=== PATIENT | female | born 1970 | race African-American/Black ===

== ENCOUNTER 2018-04-30 23:05 | Emergency (ER) | payer BC ==
[2018-04-30] MEDS: IV NORMAL SALINE 1000ML BAG 1,000 ML IV (23:45)
[2018-04-30 23:54] LABS: ADD MAN DIFF? NO
[2018-04-30] MEDS ORDERED: fentaNYL PF VIAL 100 MCG/2 ML VIAL (23:55)
[2018-04-30 23:56] LABS: BASO # 0.1 x10^3/uL (0.0-0.2); BASO % 1 % (0-3); EOS # 0.5 x10^3/uL (0.0-0.7); EOS % 4 % (0-3); HEMATOCRIT 36.5 % (36.0-47.0); HEMOGLOBIN 12.1 g/dL (12.0-15.5); LYMPH % 39 % (24-48); MEAN CORPUSCULAR HEMOGLOBIN 27 pg (25-35); MEAN CORPUSCULAR HGB CONC 33 g/dL (31-37); MEAN CORPUSCULAR VOLUME 82 fL (79-100); MONO # 0.9 x10^3/uL (0.0-1.1); MONO % 7 % (0-9); NEUT # 6.3 x10^3uL (1.8-7.7); NEUT % 50 % (31-73); PLATELET COUNT 369 x10^3/uL (140-400); RED BLOOD COUNT 4.48 x10^6/uL (3.50-5.40); WHITE BLOOD COUNT 12.7 x10^3/uL (4.0-11.0)
[2018-05-01] MEDS: ONDANSETRON PF 4 MG/2 ML VIAL. IV
[2018-05-01 00:07] LABS: ANION GAP 6 (6-14); BLOOD UREA NITROGEN 8 mg/dL (7-20); BUN/CREATININE RATIO 9 (6-20); CARBON DIOXIDE 31 mmol/L (21-32); CHLORIDE 105 mmol/L (98-107); CREATININE 0.9 mg/dL (0.6-1.0); GFR 80.5; GLUCOSE 98 mg/dL (70-99); POTASSIUM 3.6 mmol/L (3.5-5.1); SODIUM 142 mmol/L (136-145)
[2018-05-01] MEDS: IOHEXOL 300 MG/ML 100ML VIAL. IV (00:08)
[2018-05-01] MEDS: fentaNYL PF VIAL 100 MCG/2 ML VIAL IV (00:09)
[2018-05-01 00:13] LABS: ALBUMIN 2.9 g/dL (3.4-5.0); ALBUMIN/GLOBULIN RATIO 0.8 (1.0-1.7); ALK PHOS 102 U/L (46-116); ALT (SGPT) 17 U/L (14-59); AMYLASE 88 U/L (25-115); AST (SGOT) 12 U/L (15-37); LIPASE 340 U/L (73-393); TOTAL BILIRUBIN 0.2 mg/dL (0.2-1.0); TOTAL PROTEIN 6.6 g/dL (6.4-8.2)
[2018-05-01 00:23] LABS: LACTIC ACID 0.8 mmol/L (0.4-2.0)
[2018-05-01] MEDS ORDERED: CONTRAST GIVEN. MC (00:30)
[2018-05-01 01:41] LABS: BILIRUBIN,URINE NEGATIVE (NEG); CLARITY,URINE CLEAR; COLOR,URINE YELLOW; GLUCOSE,URINE NEGATIVE (NEG); NITRITE,URINE NEGATIVE (NEG); PH,URINE 5.5; PROTEIN,URINE NEGATIVE (NEG-TRACE); UROBILINOGEN,URINE 0.2 mg/dL (0.2 mg/dL)
[2018-05-01 01:58] LABS: BACTERIA,URINE FEW /HPF (0-FEW); RBC,URINE OCC /HPF (0-2); SQUAMOUS EPITHELIAL CELL,UR FEW /LPF
[2018-05-01] MEDS: methylPREDNISolone SOD SUCC PF 125 MG/2 ML VIAL. IV (02:52)
== END 2018-05-01 03:30 | disposition home or self-care (01) ==
LOC: ER 05-01 03:30
DX: K50.00 Crohn's disease of small intestine without complications (principal); Z88.5 Allergy status to narcotic agent; Z90.49 Acquired absence of other specified parts of digestive tract; Z90.89 Acquired absence of other organs
CPT/HCPCS: 36415; 74177; 80053; 81001; 82150; 83605; 83690; 85025; 96374; 96375; 99285-25; J2405; J2930; J3010; J7030; Q9967